=== PATIENT | female | born 1970 | race African-American/Black ===

== ENCOUNTER 2018-12-12 04:46 | Emergency (ER) | payer OTHER ==
[~2018-12-12] VITALS: Ht 177.8 cm; Wt 99.8 kg
[~2018-12-12 04:46] MED LIST: ACTOS 45 MG45 M1 PO; ADVAIR 250-501 EACH IH; DIABETA 5MG TABL5 MG PO; GLUCOPHAGE1000 MG PO; LISINOPRIL10 MG PO; VENTOLIN17 GM INH
[2018-12-12] MEDS ORDERED: JANUMET 50-1,01 EACH PO (05:01)
[2018-12-12] MEDS ORDERED: CLEOCIN HCL150 M1 PO (05:23)
[2018-12-12] MEDS ORDERED: ULTRAM 50MG TAB50 MG PO (05:23)
[2018-12-12] MEDS ORDERED: ZOFRAN ODT4 MG PO (05:23)
[2018-12-12] MEDS ORDERED: NAPROSYN500 MG PO (05:23)
[2018-12-12 05:37] VITALS: BP 128/73
== END 2018-12-12 05:35 | disposition home or self-care (01) ==
LOC: ER 04:46
DX: K04.7 Periapical abscess without sinus (principal); R22.0 Localized swelling, mass and lump, head; J45.909 Unspecified asthma, uncomplicated; I10 Essential (primary) hypertension; E11.9 Type 2 diabetes mellitus without complications; F17.210 Nicotine dependence, cigarettes, uncomplicated; Z88.0 Allergy status to penicillin

== ENCOUNTER 2019-09-20 19:24 | Emergency (ER) | payer OTHER ==
[~2019-09-20] VITALS: Ht 175.3 cm; Wt 108.0 kg
[~2019-09-20 19:24] MED LIST changes: +CLEOCIN HCL150 M1 PO; +JANUMET 50-1,01 EACH PO; +NAPROSYN500 MG PO; +ULTRAM 50MG TAB50 MG PO; +ZOFRAN ODT4 MG PO
[2019-09-20] MEDS ORDERED: VALACYCLOVIR1000 MG PO (19:56)
[2019-09-20] MEDS ORDERED: REFRESH LACRI-3.5 GM RT. EYE (19:59)
[2019-09-20 20:50] VITALS: BP 157/82
== END 2019-09-20 20:50 | disposition home or self-care (01) ==
LOC: ER 19:24
DX: G51.0 Bell's palsy (principal); E11.9 Type 2 diabetes mellitus without complications; I10 Essential (primary) hypertension; J45.909 Unspecified asthma, uncomplicated; F17.210 Nicotine dependence, cigarettes, uncomplicated; Z79.2 Long term (current) use of antibiotics; Z79.899 Other long term (current) drug therapy; Z88.0 Allergy status to penicillin